=== PATIENT | female | born 1965 | race American Indian/Alaskan Native ===

== ENCOUNTER 2017-02-06 17:06 | Emergency (ER) | payer OTHER ==
[2017-02-06 18:27] VITALS: BP 182/92
[2017-02-06] MEDS ORDERED: Ibuprofen 600 MG Tab PO ONE (19:00)
--- NOTE | 2017-02-06 19:02 | EDM.PDOC ---
ED HPI GENERAL MEDICAL PROBLEM - General Chief Complaint: Upper Extremity Injury/Pain Stated Complaint: PAIN IN RIGHT SHOULDER Time Seen by Provider: 02/06/17 19:02 Source of Information: Reports: Patient, Family History Limitations: Reports: No Limitations - History of Present Illness INITIAL COMMENTS - FREE TEXT/NARRATIVE: Pt was pushing a heavy box and felt something snap in her shoulder. She has a difficult time lifting her arm. Onset: Sudden, Other ( after pushing a box) Duration: Hour(s):, Getting Worse Location: Reports: Upper Extremity, Right Associated Symptoms: Reports: No Other Symptoms - Related Data Allergies Allergy/AdvReac Type Severity Reaction Status Date / Time No Known Allergies Allergy Verified 03/30/15 21:05 Home Meds: Home Meds Ferrous Sulfate 1 tab PO DAILY 02/06/17 [History] SitaGLIPtin [Januvia] 1 tab PO DAILY 02/06/17 [History] atorvaSTATin [Lipitor] 1 tab PO BEDTIME 02/06/17 [History] metFORMIN [Glucophage] 1 tab PO BID 02/06/17 [History] Past Medical History Cardiovascular History: Reports: Heart Murmur, High Cholesterol Endocrine/Metabolic History: Reports: Diabetes, Type II Hematologic History: Reports: Anemia, Iron Deficiency - Infectious Disease History Infectious Disease History: Reports: Chicken Pox - Past Surgical History Head Surgeries/Procedures: Reports: None GI Surgical History: Reports: Lysis of Adhesions Female Surgical History: Reports: Tubal Ligation Other Female Surgeries/Procedures: Left Ovary removed. March 13, 2015 Musculoskeletal Surgical History: Reports: Shoulder Surgery Other Musculoskeletal Surgeries/Procedures:: right shoulder surgery Social & Family History - Tobacco Use Smoking Status *Q: Current Some Day Smoker Years of Tobacco use: 30 Packs/Tins Daily: 0.1 Second Hand Smoke Exposure: Yes - Caffeine Use Caffeine Use: Reports: Energy Drinks - Alcohol Use Days Per Week of Alcohol Use: 0 - Recreational Drug Use Recreational Drug Use: No Review of Systems - Review of Systems Review Of Systems: See Below Constitutional: Reports: No Symptoms Eyes: Reports: No Symptoms Ears: Reports: No Symptoms Nose: Reports: No Symptoms Mouth/Throat: Reports: No Symptoms Respiratory: Reports: No Symptoms Cardiovascular: Reports: No Symptoms GI/Abdominal: Reports: No Symptoms Musculoskeletal: Reports: Other (pt is having severe pain when she reaches up with her arm. She really is having a dificult time lifting the arm. ) Neurological: Reports: No Symptoms ED EXAM, GENERAL - Physical Exam Exam: See Below Free Text/Narrative:: pt arrived with pain in her rt shoulder and she is having a difficult time lifting her arm. She was at work at the [employer] and pushed a heavy box. She developed acute pain. She has had previous rotator cuff surgery. Exam Limited By: No Limitations General Appearance: Alert, Anxious Ears: Normal TMs Nose: Nasal Deformity Throat/Mouth: Normal Inspection Head: Atraumatic Neck: Normal Inspection Respiratory/Chest: No Respiratory Distress Cardiovascular: Regular Rate, Rhythm GI/Abdominal: Soft, Non-Tender Course - Vital Signs Last Recorded V/S: Last Vital Signs Temp 36.9 C 02/06/17 18:50 Pulse 64 02/06/17 18:50 Resp 20 02/06/17 18:50 BP 182/92 H 02/06/17 18:50 Pulse Ox 98 02/06/17 18:50 - Orders/Labs/Meds Meds: Medications Discontinued Medications Generic Name Dose Route Start Last Admin Trade Name Tracy PRN Reason Stop Dose Admin Ibuprofen 600 mg 02/06/17 19:00 02/06/17 19:08 Motrin PO 02/06/17 19:01 600 mg ONETIME ONE Administration - Re-Assessments/Exams Free Text/Narrative Re-Assessment/Exam: 02/12/17 07:39 xray was obtained which did not reveal any dilocation or fracture. She is having a very difficult time lifting her arm. There is no swelling or discolration. Departure - Departure Time of Disposition: 19:48 Disposition: Home, Self-Care 01 Condition: Fair Clinical Impression: Shoulder pain - Discharge Information Instructions: Shoulder Pain Referrals: Janet Mooney DO [Primary Care Provider] - Forms: ED Department Discharge Care Plan Goals: cool pack to the rt shoulder. motrin 600mg qid, sling on and off. appt with Dr Arellano
--- NOTE | 2017-02-07 09:34 | CR ---
Shoulder Comp Rt INDICATION: pain in the rt shoulder. FINDINGS: Negative right shoulder.
== END 2017-02-06 20:15 | disposition home or self-care (01) ==
LOC: JP.ED 17:06
DX: M25.511 Pain in right shoulder (principal); E11.9 Type 2 diabetes mellitus without complications; E78.00 Pure hypercholesterolemia, unspecified; F17.210 Nicotine dependence, cigarettes, uncomplicated; D50.9 Iron deficiency anemia, unspecified; Z98.51 Tubal ligation status; Z90.721 Acquired absence of ovaries, unilateral; Z98.890 Other specified postprocedural states; Z79.899 Other long term (current) drug therapy; Z79.84 Long term (current) use of oral hypoglycemic drugs
CPT/HCPCS: 73030; 99284; A9270; 99283

== ENCOUNTER 2017-04-08 19:44 | Emergency (ER) | payer OTHER ==
[2017-04-08] MEDS ORDERED: HYDROmorphone 1 MG/ML Syringe IVPUSH ONE (20:27)
[2017-04-08] MEDS ORDERED: Ondansetron 4 MG/2 ML SDV IVPUSH ONE (20:41)
[2017-04-08] MEDS ORDERED: Ketorolac 30 MG/ML SDV IVPUSH ONE (21:10)
[2017-04-08 22:21] VITALS: BP 151/73
--- NOTE | 2017-04-08 22:24 | EDM.PDOC ---
ED HPI GENERAL MEDICAL PROBLEM - General Chief Complaint: General Stated Complaint: BACK PAIN Time Seen by Provider: 04/08/17 20:17 Source of Information: Reports: Patient History Limitations: Reports: No Limitations - History of Present Illness INITIAL COMMENTS - FREE TEXT/NARRATIVE: History of present illness: [51-year-old female presenting with left flank pain for 5 days. Starts in her left flank radiating down into right groin she does have a history of kidney stones. She's had no fevers or chills some nausea no vomiting across patient diary dysuria she's not seeing any blood in her urine.] Review of systems: As per history of present illness and below otherwise all systems reviewed and negative. Past medical history: As per history of present illness and as reviewed below otherwise noncontributory. Surgical history: As per history of present illness and as reviewed below otherwise noncontributory. Social history: No reported history of drug or alcohol abuse. Family history: As per history of present illness and as reviewed below otherwise noncontributory. Physical exam: HEENT: Atraumatic, normocephalic, pupils reactive, negative for conjunctival pallor or scleral icterus, mucous membranes moist, throat clear, neck supple, nontender, trachea midline. Lungs: Clear to auscultation, breath sounds equal bilaterally, chest nontender. Heart: S1S2, regular, negative for clicks, rubs, or JVD. Abdomen: Soft, nondistended, nontender. Negative for masses or hepatosplenomegaly. She does have left CVA tenderness and some right sided suprapubic tenderness and right lower quadrant pain Pelvis: Stable nontender. Genitourinary: Deferred. Rectal: Deferred. Extremities: Atraumatic, negative for cords or calf pain. Neurovascular unremarkable. Neuro: Awake, alert, oriented. Cranial nerves II through XII unremarkable. Cerebellum unremarkable. Motor and sensory unremarkable throughout. Exam nonfocal. Diagnostics: [CBC complete medical panel and UA were obtained. She does have hematuria and anemia and elevated liver enzymes. Apparently her doctors aware of her anemia and perhaps also her elevated liver enzymes and will be seeing her on Friday. We 'll send a copy of the lab work with her as well as copy of the CT.] Therapeutics: [She received IV fluids and IV pain meds while here] Impression: [Left sided 5 mm ureteral stone seen on CT] Plan: [She will follow-up Friday with her primary care were providing her pain meds and antibiotics in the form of Cipro 500 mg twice a day for 7 days and she went septic and had to be intubated with her last kidney stone. She is provided with [place] No. 18 5/325] Definitive disposition and diagnosis as appropriate pending reevaluation and review of above. Left Lower Abdomen Pain Score (Numeric/FACES): 7 - Related Data Allergies Allergy/AdvReac Type Severity Reaction Status Date / Time No Known Allergies Allergy Verified 03/30/15 21:05 Home Meds: Home Meds Ferrous Sulfate 1 tab PO DAILY 02/06/17 [History] SitaGLIPtin [Januvia] 1 tab PO DAILY 02/06/17 [History] atorvaSTATin [Lipitor] 1 tab PO BEDTIME 02/06/17 [History] metFORMIN [Glucophage] 1 tab PO BID 02/06/17 [History] Past Medical History Cardiovascular History: Reports: Heart Murmur, High Cholesterol Genitourinary History: Reports: Pyelonephritis, Renal Calculus Endocrine/Metabolic History: Reports: Diabetes, Type II Hematologic History: Reports: Anemia, Iron Deficiency - Infectious Disease History Infectious Disease History: Reports: Chicken Pox - Past Surgical History Head Surgeries/Procedures: Reports: None GI Surgical History: Reports: Lysis of Adhesions Female Surgical History: Reports: Tubal Ligation Other Female Surgeries/Procedures: Left Ovary removed. March 13, 2015 Musculoskeletal Surgical History: Reports: Shoulder Surgery Other Musculoskeletal Surgeries/Procedures:: right shoulder surgery Social & Family History - Tobacco Use Smoking Status *Q: Current Some Day Smoker Years of Tobacco use: 20 Packs/Tins Daily: 0.5 Second Hand Smoke Exposure: Yes - Caffeine Use Caffeine Use: Reports: None - Alcohol Use Days Per Week of Alcohol Use: 0 - Recreational Drug Use Recreational Drug Use: No ED ROS GENERAL - Review of Systems Review Of Systems: ROS reveals no pertinent complaints other than HPI. ED EXAM, GENERAL - Physical Exam Exam: See Below Course - Vital Signs Last Recorded V/S: Last Vital Signs Temp 36.7 C 04/08/17 20:10 Pulse 92 04/08/17 20:10 Resp 19 04/08/17 20:10 BP 195/110 H 04/08/17 20:10 Pulse Ox 98 04/08/17 20:10 - Orders/Labs/Meds Orders: Active Orders 24 hr Category Date Time Status Abdomen Pelvis wo Cont [CT] Stat Exams 04/08/17 20:26 Taken Labs: Laboratory Tests 04/08/17 04/08/17 04/08/17 Range/Units 20:36 20:36 21:23 WBC 11.6 H (4.5-11.0) K/uL RBC 5.30 (3.30-5.50) M/uL Hgb 10.8 L (12.0-15.0) g/dL Hct 35.3 L (36.0-48.0) % MCV 67 L (80-98) fL MCH 20 L (27-31) pg MCHC 31 L (32-36) % Plt Count 338 (150-400) K/uL Neut % (Auto) 71 H (36-66) % Lymph % (Auto) 22 L (24-44) % [place] % (Auto) 6 (2-6) % Eos % (Auto) 2 (2-4) % Baso % (Auto) 0 (0-1) % Sodium 140 (140-148) mmol/L Potassium 3.9 (3.6-5.2) mmol/L Chloride 105 (100-108) mmol/L Carbon Dioxide 25 (21-32) mmol/L Anion Gap 10.2 (5.0-14.0) mmol/L BUN 14 (7-18) mg/dL Creatinine 0.7 (0.6-1.0) mg/dL Est Cr Clr Drug Dosing 87.48 mL/min Estimated GFR (MDRD) > 60 (>60) Glucose 143 H (74-106) mg/dL Calcium 9.0 (8.5-10.1) mg/dL Total Bilirubin 0.3 (0.2-1.0) mg/dL AST 88 H D (15-37) U/L ALT 91 H (12-78) U/L Alkaline Phosphatase 142 H (46-116) U/L Total Protein 8.6 H (6.4-8.2) g/dL Albumin 3.8 (3.4-5.0) g/dL Globulin 4.8 H (2.3-3.5) g/dL Albumin/Globulin Ratio 0.8 L (1.2-2.2) Urine Color Yellow Urine Appearance Slightly cloudy Urine pH 5.0 (4.5-8.0) Ur Specific Reading 1.030 (1.008-1.030) Urine Protein Trace (NEGATIVE) mg/dL Urine Glucose (UA) Normal (NEGATIVE) mg/dL Urine Ketones Negative (NEGATIVE) mg/dL Urine Occult Blood Large (NEGATIVE) Urine Nitrite Negative (NEGATIVE) Urine Bilirubin Small (NEGATIVE) Urine Urobilinogen Normal (NORMAL) mg/dL Ur Leukocyte Esterase Negative (NEGATIVE) Urine RBC >100 H (0-5) Urine WBC 0-5 (0-5) Ur Epithelial Cells Many Amorphous Sediment Not seen Urine Bacteria Moderate Urine Mucus Moderate Urine Other Meds: Medications Discontinued Medications Generic Name Dose Route Start Last Admin Trade Name Freq PRN Reason Stop Dose Admin Hydromorphone HCl 1 mg 04/08/17 20:27 04/08/17 20:50 Dilaudid IVPUSH 04/08/17 20:28 1 mg ONETIME ONE Administration Ketorolac Tromethamine 30 mg 04/08/17 21:10 04/08/17 21:17 Toradol IVPUSH 04/08/17 21:11 30 mg ONETIME ONE Administration Ondansetron HCl 4 mg 04/08/17 20:41 04/08/17 20:50 Zofran IVPUSH 04/08/17 20:42 4 mg ONETIME ONE Administration Departure - Departure Time of Disposition: 22:23 Disposition: Home, Self-Care 01 Condition: Good Clinical Impression: Ureteral stone - Discharge Information Forms: ED Department Discharge Additional Instructions: Follow-up with her doctor on Friday as we discussed. Your provided with pain meds and antibiotics and also copy of your lab work and a copy of the CT report. Bring these with you when you see her doctor. - My Orders Last 24 Hours: My Active Orders 04/08/17 20:26 Abdomen Pelvis wo Cont [CT] Stat - Assessment/Plan Last 24 Hours: My Active Orders 04/08/17 20:26 Abdomen Pelvis wo Cont [CT] Stat
== END 2017-04-08 22:32 | disposition home or self-care (01) ==
LOC: JP.ED 19:44
DX: N13.2 Hydronephrosis with renal and ureteral calculous obstruction (principal); E11.9 Type 2 diabetes mellitus without complications; E78.00 Pure hypercholesterolemia, unspecified; F17.210 Nicotine dependence, cigarettes, uncomplicated; Z79.84 Long term (current) use of oral hypoglycemic drugs; Z79.899 Other long term (current) drug therapy; Z98.51 Tubal ligation status; Z98.890 Other specified postprocedural states
CPT/HCPCS: 36415; 74176; 80053; 81001; 85025; 96374; 96375; 99284; J1170; J1885; J2405

== ENCOUNTER 2017-10-11 19:50 | Emergency (ER) | payer OTHER ==
[2017-10-11] MEDS ORDERED: Morphine 4 MG/ML Syringe IVPUSH ONE (20:14)
[2017-10-11] MEDS ORDERED: Sodium Chloride 0.9% 10 ML Syringe FLUSH PRN (20:14)
[2017-10-11] MEDS ORDERED: Ondansetron 4 MG/2 ML SDV IVPUSH ONE (20:15)
[2017-10-11] MEDS ORDERED: Albuterol 0.083% 2.5 MG/3 ML Neb Soln NEB ONE (21:04)
--- NOTE | 2017-10-11 22:56 | EDM.PDOC ---
ED HPI GENERAL MEDICAL PROBLEM - General Chief Complaint: Chest Pain Stated Complaint: ILLNESS Time Seen by Provider: 10/11/17 20:02 Source of Information: Reports: Patient History Limitations: Reports: Physical Impairment (This lady is extremely hoarse switch very difficult for her to talk intelligibly) - History of Present Illness INITIAL COMMENTS - FREE TEXT/NARRATIVE: This lady comes in complaining of productive cough and hoarseness but she also complained of this aching in the center of her chest and that's been going on all day long. Her problems started about a week ago with some upper respiratory symptoms and cough of 3 days ago she had a little bit of fever but that has gone away. Her cough is continued now to the point that she is gotten hoarse and is barely able to talk. And she continues to express this feeling of tightness in the substernal area. Middle Chest Pain Score (Numeric/FACES): 5 - Related Data Allergies Allergy/AdvReac Type Severity Reaction Status Date / Time No Known Allergies Allergy Verified 10/11/17 20:13 Home Meds: Home Meds Ferrous Sulfate 1 tab PO DAILY 02/06/17 [History] SitaGLIPtin [Januvia] 1 tab PO DAILY 02/06/17 [History] atorvaSTATin [Lipitor] 1 tab PO BEDTIME 02/06/17 [History] metFORMIN [Glucophage] 1 tab PO BID 02/06/17 [History] Ergocalciferol (Vitamin D2) [Vitamin D2] 1 dose PO WEEKLY 10/11/17 [History] Fluticasone Propionate [Flonase] 1 dose TATYANA ASDIRECTED 10/11/17 [History] Potassium Chloride [Potassium Chloride] 1 packet PO BID 10/11/17 [History] Past Medical History Cardiovascular History: Reports: Heart Murmur, High Cholesterol, Hypertension Genitourinary History: Reports: Pyelonephritis, Renal Calculus [employer]OCIATE History: Reports: Endocrine/Metabolic History: Reports: Diabetes, Type II Hematologic History: Reports: Anemia, Iron Deficiency - Infectious Disease History Infectious Disease History: Reports: Chicken Pox - Past Surgical History GI Surgical History: Reports: Cholecystectomy, Lysis of Adhesions Female Surgical History: Reports: Lithotripsy/ESWL, Tubal Ligation Other Female Surgeries/Procedures: Left Ovary removed. March 13, 2015 Musculoskeletal Surgical History: Reports: Shoulder Surgery Other Musculoskeletal Surgeries/Procedures:: right shoulder surgery Social & Family History - Tobacco Use Smoking Status *Q: Light Tobacco Smoker Years of Tobacco use: 30 Packs/Tins Daily: 0.2 Second Hand Smoke Exposure: Yes - Caffeine Use Caffeine Use: Reports: None - Alcohol Use Days Per Week of Alcohol Use: 0 - Recreational Drug Use Recreational Drug Use: No ED ROS GENERAL - Review of Systems Review Of Systems: See Below Constitutional: Reports: Fever HEENT: Reports: Throat Pain Respiratory: Reports: Cough Cardiovascular: Reports: Chest Pain Endocrine: Reports: No Symptoms GI/Abdominal: Reports: No Symptoms : Reports: No Symptoms ED EXAM, GENERAL - Physical Exam Exam: See Below (About a auto bike and) Exam Limited By: No Limitations General Appearance: Alert, Mild Distress, Other (She is very hoarse struggling to talk) Eye Exam: Bilateral Eye: Normal Inspection Ears: Normal External Exam, Normal TMs (She was told in the past there is fluid in her ears but it doesn't look like it today) Nose: Normal Inspection Throat/Mouth: Normal Inspection, Normal Oropharynx Head: Atraumatic Neck: Normal Inspection (No stridor) Respiratory/Chest: Lungs Clear, Normal Breath Sounds, Chest Non-Tender Cardiovascular: Regular Rate, Rhythm, No Murmur Peripheral Pulses: 2+: Radial (L), Radial (R) GI/Abdominal: Non-Tender Extremities: Normal Inspection Neurological: Alert, Oriented Psychiatric: Normal Affect Skin Exam: Warm, Dry Course - Vital Signs Last Recorded V/S: Last Vital Signs Temp 36.3 C 10/11/17 19:55 Pulse 84 10/11/17 23:07 Resp 19 10/11/17 23:07 BP 140/71 10/11/17 23:07 Pulse Ox 98 10/11/17 23:07 - Orders/Labs/Meds Orders: Active Orders 24 hr Category Date Time Status EKG Documentation Completion [RC] ASDIRECTED Care 10/11/17 20:14 Active RT Aerosol Therapy [RC] ASDIRECTED Care 10/11/17 21:04 Active Chest 2V [CR] Urgent Exams 10/11/17 20:48 Taken Saline Lock Insert [OM.PC] Urgent Oth 10/11/17 20:14 Ordered EKG 12 Lead [EK] Urgent Ther 10/11/17 20:14 Ordered Labs: Laboratory Tests 10/11/17 10/11/17 Range/Units 20:24 20:24 WBC 7.4 (4.5-11.0) K/uL RBC 5.42 (3.30-5.50) M/uL Hgb 11.0 L (12.0-15.0) g/dL Hct 36.3 (36.0-48.0) % MCV 67 L (80-98) fL MCH 20 L (27-31) pg MCHC 30 L (32-36) % Plt Count 238 (150-400) K/uL Neut % (Auto) 66 (36-66) % Lymph % (Auto) 24 (24-44) % Long % (Auto) 8 H (2-6) % Eos % (Auto) 2 (2-4) % Baso % (Auto) 0 (0-1) % Sodium 140 (140-148) mmol/L Potassium 3.2 L (3.6-5.2) mmol/L Chloride 106 (100-108) mmol/L Carbon Dioxide 24 (21-32) mmol/L Anion Gap 13.2 (5.0-14.0) mmol/L BUN 7 D (7-18) mg/dL Creatinine 0.6 (0.6-1.0) mg/dL Est Cr Clr Drug Dosing 100.94 mL/min Estimated GFR (MDRD) > 60 (>60) Glucose 216 H (74-106) mg/dL Calcium 8.1 L (8.5-10.1) mg/dL Total Bilirubin 0.3 (0.2-1.0) mg/dL AST 62 H (15-37) U/L ALT 85 H (12-78) U/L Alkaline Phosphatase 178 H (46-116) U/L Troponin I < 0.017 (0.000-0.056) ng/mL Total Protein 7.3 (6.4-8.2) g/dL Albumin 3.5 (3.4-5.0) g/dL Globulin 3.8 H (2.3-3.5) g/dL Albumin/Globulin Ratio 0.9 L (1.2-2.2) Meds: Medications Discontinued Medications Generic Name Dose Route Start Last Admin Trade Name Freq PRN Reason Stop Dose Admin Albuterol 2.5 mg 10/11/17 21:04 10/11/17 21:16 Proventil Neb Soln NEB 02/17/18 21:05 2.5 mg ONETIME ONE Administration Morphine Sulfate 4 mg 10/11/17 20:14 10/11/17 20:36 Morphine IVPUSH 10/11/17 20:15 4 mg ONETIME ONE Administration Ondansetron HCl 4 mg 10/11/17 20:15 10/11/17 20:35 Zofran IVPUSH 10/11/17 20:16 4 mg ONETIME ONE Administration Sodium Chloride 10 ml 10/11/17 20:14 10/11/17 20:35 Saline Flush FLUSH 10 ml ASDIRECTED PRN Administration Keep Vein Open - Radiology Interpretation Free Text/Narrative:: Chest x-ray normal - Re-Assessments/Exams Free Text/Narrative Re-Assessment/Exam: 10/11/17 23:04 My initial encounter with this patient was immediately after an EKG was done. This EKG had a wildly wondering baseline but the readout noted ST elevation anteriorly. I wasn't able to interpret this EKG but the nurse said this was the best she could do because the patient was so uncomfortable and moving around. Therefore an IV was started and she was given 4 mg of morphine this settled her down quite a bit and a second EKG was done and this was completely normal. At that point a better history and exam was done. And that's what appears under her physical exam. 10/11/17 23:08 This lady also received an albuterol nebulizer treatment which didn't seem to make much difference to her cough. Although I think the morphine helped 10/11/17 23:09 Departure - Departure Time of Disposition: 22:53 Disposition: Home, Self-Care 01 Condition: Fair Clinical Impression: Acute laryngotracheitis Instructions: Laryngitis, [place] Referrals: PCP,None [Primary Care Provider] - Forms: ED Department Discharge Additional Instructions: Take the antibiotic azithromycin as directed. Take prednisone 40 mg daily for 5 days. For pain you may use the [place] 5/325, #18 tablets, one or 2 every 4 hours. Note that the hydrocodone in this medication will relieve cough very well. It causes sedation and can cause dependence or addiction if misused. Using it for a week should not be a problem. See your Dr. if no better in a few days. Return to the ER at any time if needed - My Orders Last 24 Hours: My Active Orders 10/11/17 20:14 EKG Documentation Completion [RC] ASDIRECTED Saline Lock Insert [OM.PC] Urgent EKG 12 Lead [EK] Urgent 10/11/17 20:48 Chest 2V [CR] Urgent 10/11/17 21:04 RT Aerosol Therapy [RC] ASDIRECTED - Assessment/Plan Last 24 Hours: My Active Orders 10/11/17 20:14 EKG Documentation Completion [RC] ASDIRECTED Saline Lock Insert [OM.PC] Urgent EKG 12 Lead [EK] Urgent 10/11/17 20:48 Chest 2V [CR] Urgent 10/11/17 21:04 RT Aerosol Therapy [RC] ASDIRECTED
[2017-10-11 23:07] VITALS: BP 140/71
--- NOTE | 2017-10-13 09:57 | CR ---
Chest 2V FINDINGS: The heart and vascular structures are normal in appearance. No infiltrates or effusions are demonstrated. The skeletal structures are unremarkable. IMPRESSION: Negative exam.
== END 2017-10-11 23:06 | disposition home or self-care (01) ==
LOC: JP.ED 19:50
DX: J05.0 Acute obstructive laryngitis [croup] (principal); I10 Essential (primary) hypertension; E78.00 Pure hypercholesterolemia, unspecified; E11.9 Type 2 diabetes mellitus without complications; Z79.84 Long term (current) use of oral hypoglycemic drugs; Z79.899 Other long term (current) drug therapy; Z72.0 Tobacco use
CPT/HCPCS: 36415; 71046; 80053; 84484; 85025; 93005; 94640; 96374; 96375; 99285; J2270; J2405; J7050

== ENCOUNTER 2023-01-17 14:52 | Emergency (ER) | payer SELFPAY ==
[2023-01-17 15:34] VITALS: BP 181/78; PULSE 84
[2023-01-17] MEDS ORDERED: Ketorolac 30 MG/ML SDV IM ONE (16:17)
== END 2023-01-17 17:40 | disposition home or self-care (01) ==
LOC: JP.ED 14:52
DX: M25.561 Pain in right knee (principal); I10 Essential (primary) hypertension; E11.9 Type 2 diabetes mellitus without complications; Z79.4 Long term (current) use of insulin; Z79.899 Other long term (current) drug therapy
CPT/HCPCS: 73562; 96372; 99283; J1885

== ENCOUNTER 2023-04-14 07:27 | Day surgery (SDC) | payer BC, OTHER ==
[~2023-04-14 07:27] MED LIST: Bupivacaine 0.5% 50 ML MDV ONE
[2023-04-14] MEDS ORDERED: fentaNYL 100 MCG/2 ML SDV ONE ×2 (07:40→11:10)
[2023-04-14] MEDS ORDERED: Propofol 200 MG/20 ML SDV ONE ×2 (07:40→11:20)
[2023-04-14] MEDS ORDERED: Midazolam 1 MG/ML 2 ML SDV ONE ×2 (07:40→11:10)
[2023-04-14 07:46] LABS: HEMATOCRIT 44.6 % (34.3-46.0); HEMOGLOBIN 15.6 g/dL (11.2-15.5); MEAN CORPUSCULAR VOLUME 82.9 fL (81.4-99.0); RED BLOOD CELL COUNT 5.38 M/uL (3.77-5.24); WHITE BLOOD CELL COUNT,WBC 8.7 K/uL (3.2-11.0)
[2023-04-14] MEDS ORDERED: Lactated Ringers 1,000 ML IV SCH (08:00)
[2023-04-14 08:12] LABS: ALANINE AMINOTRANSFERASE,ALT 35 U/L (12-78); ALBUMIN 3.8 g/dL (3.4-5.0); ALKALINE PHOSPHATASE 149 U/L (46-116); ASPARTATE AMNIOTRANSFERASE,AST 29 U/L (15-37); BILIRUBIN TOTAL 0.6 mg/dL (0.2-1.0); BLOOD UREA NITROGEN,BUN 12 mg/dL (7-18); CALCIUM 8.8 mg/dL (8.5-10.1); CARBON DIOXIDE,CO2 30 mmol/L (21-32); CHLORIDE,CL 108 mmol/L (100-108); CREATININE 0.6 mg/dL (0.6-1.0); EST CRCL DRUG DOSING (CG) 95.33 mL/min; ESTIMATED GFR 106 mL/min (>60); GLUCOSE RANDOM 99 mg/dL (74-106); POTASSIUM,K 3.3 mmol/L (3.6-5.2); PROTEIN TOTAL,TP 7.6 g/dL (6.4-8.2); SODIUM,NA 145 mmol/L (140-148)
[2023-04-14 08:16] LABS: ANION GAP 10.3 mmol/L (5.0-14.0)
[2023-04-14] MEDS: Nozin Nasal Sanitizer NASBOTH SCH ×2 (08:23→20:35)
[2023-04-14] MEDS ORDERED: Tranexamic Acid 1,000 MG in Sodium Chloride 0.9% 50 ML IV ONE (08:45)
[2023-04-14] MEDS ORDERED: ceFAZolin 2 GM in Sodium Chloride 0.9% 50 ML IV ONE (09:00)
[2023-04-14] MEDS ORDERED: ceFAZolin 2 GM in Premix Bag 1 BAG IV ONE (09:00)
[2023-04-14] MEDS ORDERED: Docusate Sodium 100 MG Cap PO PRN (10:48)
[2023-04-14] MEDS ORDERED: Morphine 2 MG/ML SYRINGE IVPUSH PRN (10:48)
[2023-04-14] MEDS ORDERED: Ondansetron 4 MG/2 ML SDV IVPUSH PRN (10:48)
[2023-04-14] MEDS ORDERED: Magnesium Hydroxide 400 MG/5 ML Susp 30 ML Cup PO PRN (10:48)
[2023-04-14] MEDS ORDERED: SEMAGLUTIDE 1 MG/0.5 ML SQ SCH (11:00)
[2023-04-14] MEDS ORDERED: ceFAZolin 1 GM in Sodium Chloride 0.9% 50 ML IV SCH (11:00)
[2023-04-14] MEDS ORDERED: Sodium Chloride 0.9% 1,000 ML IV SCH (11:00)
[2023-04-14] MEDS ORDERED: fentaNYL 250 MCG/5 ML SDV ONE ×2 (11:18→11:22)
[2023-04-14] MEDS ORDERED: Rocuronium 50 MG/5 ML Vial ONE (11:20)
[2023-04-14] MEDS ORDERED: Dexamethasone 4 MG/ML SDV ONE (11:21)
[2023-04-14] MEDS ORDERED: Glycopyrrolate 0.2 MG/ML 5 ML MDV ONE (11:21)
[2023-04-14] MEDS ORDERED: Ondansetron 4 MG/2 ML SDV ONE (11:21)
[2023-04-14] MEDS ORDERED: Neostigmine Methylsulfate 1 MG/ML 5 ML Syringe ONE (11:21)
[2023-04-14] MEDS ORDERED: Lactated Ringers 1,000 ML ONE ×2 (11:31)
[2023-04-14] MEDS ORDERED: Bupivacaine 0.5% 30 ML SDV ONE (12:08)
[2023-04-14] MEDS ORDERED: Morphine 2 MG/ML SYRINGE IVPUSH ONE (12:57)
[2023-04-14] MEDS ORDERED: hydrOXYzine HCL 100 MG/2 ML SDV IM ONE (12:57)
[2023-04-14] MEDS ORDERED: Non-Formulary Medication 1 Each (Insulin Aspart [Novolog] 100 UNIT/ML Vial) SQ SCH (14:00)
[2023-04-14] MEDS: Ketorolac 30 MG/ML SDV IVPUSH PRN ×2 (14:00→23:21)
[2023-04-14] MEDS: oxyCODONE 5 MG Tab PO PRN ×2 (14:34→20:35)
[2023-04-14] MEDS: Losartan 25 MG Tab PO SCH (14:35)
[2023-04-14] MEDS: Insulin Lispro 100 Unit/ML 3 ML KwikPen SUBCUT SCH (16:54)
[2023-04-14] MEDS: Acetaminophen 325 MG Tab PO SCH ×2 (16:54→21:09)
[2023-04-14] MEDS: ceFAZolin 1 GM in Premix Bag 1 BAG IV SCH (18:42)
[2023-04-14] MEDS: Aspirin 325 MG Tab.EC PO SCH (20:35)
[2023-04-14] MEDS: Pregabalin 75 MG Cap PO SCH (20:41)
[2023-04-14] MEDS ORDERED: Nozin Nasal Sanitizer NASBOTH SCH (21:00)
[2023-04-14] MEDS ORDERED: Non-Formulary Medication 1 Each (Insulin Detemir [Levemir] 100 UNIT/ML Pen) SUBCUT SCH (21:00)
[2023-04-14] MEDS ORDERED: Insulin Glargine,Human Rec. Analog 100 Units/ML 3 ML Pen SUBCUT SCH (21:00)
[2023-04-15] MEDS: Acetaminophen 325 MG Tab PO SCH ×2 (03:52→09:25)
[2023-04-15] MEDS: ceFAZolin 1 GM in Premix Bag 1 BAG IV SCH ×2 (03:52→11:28)
[2023-04-15] MEDS: oxyCODONE 5 MG Tab PO PRN ×3 (03:55→11:28)
[2023-04-15] MEDS ORDERED: SEMAGLUTIDE 2 MG/0.75 ML SQ SCH (09:00)
[2023-04-15] MEDS: Insulin Lispro 100 Unit/ML 3 ML KwikPen SUBCUT SCH ×2 (09:07→11:40)
[2023-04-15] MEDS: Aspirin 325 MG Tab.EC PO SCH (09:24)
[2023-04-15] MEDS: Nozin Nasal Sanitizer NASBOTH SCH (09:24)
[2023-04-15] MEDS: Losartan 25 MG Tab PO SCH (09:25)
[2023-04-15] MEDS: Pregabalin 75 MG Cap PO SCH (09:28)
[2023-04-15 10:37] VITALS: BP 121/64; PULSE 67
[2023-04-15] MEDS: Ketorolac 30 MG/ML SDV IVPUSH PRN (11:34)
== END 2023-04-15 16:20 | disposition home or self-care (01) ==
LOC: JP.SDS 07:27 → JP.MS 10:48 → JP.SDS 04-15 16:20
PROVIDERS: ATTEND Specialist
DX: M17.11 Unilateral primary osteoarthritis, right knee (principal); E11.9 Type 2 diabetes mellitus without complications; I10 Essential (primary) hypertension; Z88.8 Allergy status to other drugs, medicaments and biological substances; Z79.4 Long term (current) use of insulin; Z79.82 Long term (current) use of aspirin; Z79.85 Long-term (current) use of injectable non-insulin antidiabetic drugs; Z79.899 Other long term (current) drug therapy
CPT/HCPCS: 27447; 36415; 73560; 80053; 82947; 85027; 97110; 97161; 97530; A9270; C1713; C1776; J0690; J1100; J1815; J1885; J2250; J2270; J2405; J2704; J2710; J3010; J3410; J3490; J7030; J7120

== ENCOUNTER 2023-04-19 09:51 | Emergency (ER) | payer BC ==
[2023-04-19 10:10] VITALS: BP 151/73; PULSE 87
[2023-04-19 11:27] LABS: BASOPHILS ABSOLUTE AUTO 0.04 K/uL (0.00-0.10); BASOPHILS PERCENT AUTO 0.4 % (0.1-1.3); EOSINOPHILS ABSOLUTE AUTO 0.23 K/uL (0.00-0.40); EOSINOPHILS PERCENT AUTO 2.4 % (0.0-5.4); HEMOGLOBIN 10.9 g/dL (11.2-15.5); IMMATURE GRAN ABSOLUTE AUTO 0.06 K/uL (0.00-0.23); IMMATURE GRAN PERCENT AUTO 0.6 % (0.0-0.7); LYMPHOCYTES ABSOLUTE AUTO 2.39 K/uL (0.8-3.3); LYMPHOCYTES PERCENT AUTO 24.6 % (11.4-47.7); MEAN CORPUSCULAR HEMOGLOBIN 28.8 pg (31.6-35.5); MEAN CORPUSCULAR HGB CONC 34.1 g/dL (31.6-35.5); MEAN CORPUSCULAR VOLUME 84.7 fL (81.4-99.0); MONOCYTES ABSOLUTE AUTO 0.64 K/uL (0.20-0.90); MONOCYTES PERCENT AUTO 6.6 % (3.3-12.6); NEUTROPHILS ABSOLUTE AUTO 6.37 K/uL (1.0-7.6); NEUTROPHILS PERCENT AUTO 65.4 % (40.0-78.1); PLATELET COUNT,PLT 241 K/uL (130-375); RED BLOOD CELL COUNT 3.78 M/uL (3.77-5.24); WHITE BLOOD CELL COUNT,WBC 9.7 K/uL (3.2-11.0)
[2023-04-19 11:53] LABS: C-REACTIVE PROTEIN 2.81 mg/dL (0.0-0.3); CALCIUM 8.5 mg/dL (8.5-10.1); CREATININE 0.5 mg/dL (0.6-1.0); EST CRCL DRUG DOSING (CG) 114.4 mL/min; POTASSIUM,K 3.2 mmol/L (3.6-5.2)
[2023-04-19 12:01] LABS: ANION GAP 14.2 mmol/L (5.0-14.0)
== END 2023-04-19 13:16 | disposition home or self-care (01) ==
LOC: JP.ED 09:51
DX: R11.0 Nausea (principal); M79.81 Nontraumatic hematoma of soft tissue; I10 Essential (primary) hypertension; E11.9 Type 2 diabetes mellitus without complications; F17.210 Nicotine dependence, cigarettes, uncomplicated; Z86.16 Personal history of COVID-19; Z79.4 Long term (current) use of insulin; Z98.890 Other specified postprocedural states; Z79.899 Other long term (current) drug therapy
CPT/HCPCS: 36415; 80048; 84484; 85025; 86140; 99283

== ENCOUNTER 2023-08-18 16:16 | Emergency (ER) | payer BC ==
[2023-08-18 16:36] VITALS: BP 185/80; PULSE 102
[2023-08-18] MEDS ORDERED: Ketorolac 30 MG/ML SDV IM ONE (17:03)
== END 2023-08-18 18:40 | disposition home or self-care (01) ==
LOC: JP.ED 16:16
DX: S80.01XA Contusion of right knee, initial encounter (principal); I10 Essential (primary) hypertension; E11.9 Type 2 diabetes mellitus without complications; F17.210 Nicotine dependence, cigarettes, uncomplicated; Z79.84 Long term (current) use of oral hypoglycemic drugs; Z79.4 Long term (current) use of insulin; Z86.16 Personal history of COVID-19
CPT/HCPCS: 73562; 96372; 99283; J1885

== ENCOUNTER 2025-02-22 13:25 | Emergency (ER) | payer BC, OTHER ==
[2025-02-22 14:03] LABS: BASOPHILS ABSOLUTE AUTO 0.04 K/uL (0.00-0.10); BASOPHILS PERCENT AUTO 0.4 % (0.1-1.3); EOSINOPHILS ABSOLUTE AUTO 0.07 K/uL (0.00-0.40); EOSINOPHILS PERCENT AUTO 0.7 % (0.0-5.4); IMMATURE GRAN ABSOLUTE AUTO 0.03 K/uL (0.00-0.23); IMMATURE GRAN PERCENT AUTO 0.3 % (0.0-0.7); LYMPHOCYTES ABSOLUTE AUTO 2.84 K/uL (0.8-3.3); LYMPHOCYTES PERCENT AUTO 27.3 % (11.4-47.7); MONOCYTES ABSOLUTE AUTO 0.67 K/uL (0.20-0.90); MONOCYTES PERCENT AUTO 6.4 % (3.3-12.6); NEUTROPHILS ABSOLUTE AUTO 6.74 K/uL (1.0-7.6); NEUTROPHILS PERCENT AUTO 64.9 % (40.0-78.1); PLATELET COUNT,PLT 218 K/uL (130-375); RED BLOOD CELL COUNT 5.35 M/uL (3.77-5.24); WHITE BLOOD CELL COUNT,WBC 10.4 K/uL (3.2-11.0)
[2025-02-22 14:15] LABS: APPEARANCE,URINE CLEAR (CLEAR); GLUCOSE,URINE NEGATIVE (NEGATIVE); OCCULT BLOOD,URINE NEGATIVE (NEGATIVE)
[2025-02-22 14:27] LABS: EPITHELIAL CELLS,URINE MODERATE
[2025-02-22 14:31] LABS: LACTIC ACID 1.1 mmol/L (0.4-2.0)
[2025-02-22] MEDS ORDERED: Sodium Chloride 0.9% 10 ML Syringe FLUSH PRN (14:33)
[2025-02-22 14:38] LABS: A/G RATIO 1.1 (1.2-2.2); ALANINE AMINOTRANSFERASE,ALT 41 U/L (12-78); ASPARTATE AMNIOTRANSFERASE,AST 28 U/L (15-37); BILIRUBIN TOTAL 0.7 mg/dL (0.2-1.0); BLOOD UREA NITROGEN,BUN 18 mg/dL (7-18); CARBON DIOXIDE,CO2 27 mmol/L (21-32); CHLORIDE,CL 105 mmol/L (100-108); CREATININE 0.6 mg/dL (0.6-1.0); EST CRCL DRUG DOSING (CG) 81.82 mL/min; ESTIMATED GFR 105 mL/min (>60); GLUCOSE RANDOM 123 mg/dL (74-106); POTASSIUM,K 3.5 mmol/L (3.6-5.2); PROTEIN TOTAL,TP 7.3 g/dL (6.4-8.2); SODIUM,NA 143 mmol/L (140-148)
[2025-02-22 14:50] VITALS: BP 139/67; PULSE 69
[2025-02-22] MEDS ORDERED: Iopamidol 612 MG/ML 100 ML Bottle IV PRN (14:53)
[2025-02-22] MEDS ORDERED: Sodium Chloride 0.9% 10 ML Syringe FLUSH ONE (14:53)
[2025-02-22] MEDS ORDERED: fentaNYL 50 MCG/ML SDV IVPUSH ONE (15:17)
[2025-02-22] MEDS ORDERED: Ondansetron 4 MG/2 ML SDV IVPUSH ONE (15:17)
== END 2025-02-22 16:05 | disposition home or self-care (01) ==
LOC: JP.ED 13:25
DX: R10.32 Left lower quadrant pain (principal); I10 Essential (primary) hypertension; E11.9 Type 2 diabetes mellitus without complications; Z79.82 Long term (current) use of aspirin; Z79.899 Other long term (current) drug therapy; Z86.16 Personal history of COVID-19; Z90.49 Acquired absence of other specified parts of digestive tract
CPT/HCPCS: 36415; 74177; 74177-26; 80053; 81001; 83605; 85025; 86140; 99283; 99284